=== PATIENT | male | born 1955 | race American Indian/Alaskan Native ===

== ENCOUNTER 2022-05-21 09:44 | Day surgery (SDC) | payer MEDICARE ==
[~2022-05-21 09:44] MED LIST: SODIUM CHLORIDE 0.9% 1000 ML 1,000 ML IV SCH
--- NOTE | 2022-05-21 10:53 | Anesthesia Day of Surgery ---
Anesthesia Day of Surgery - Day of Surgery Patient Examined: Yes Patient H&P Reviewed: Yes Patient is NPO: Yes
--- NOTE | 2022-05-21 10:56 | Anesthesia Consultation ---
Anesthesia Consult and Med Hx - Airway Anesthetic Teeth Evaluation: Edentulous ROM Head & Neck: Inadequate Mental/Hyoid Distance: Inadequate Mallampati Class: Class I Intubation Access Assessment: Possibly Difficult - Pulmonary Exam CTA: Yes - Cardiac Exam Cardiac Exam: RRR (h/o atrial fibrillation) - Pre-Operative Health Status ASA Pre-Surgery Classification: ASA3 Proposed Anesthetic Plan: MAC - Pulmonary Hx Smoking: No Hx Asthma: Yes COPD: No Hx Pneumonia: No Hx Sleep Apnea: No - Cardiovascular System Hx Hypertension: Yes Hx Coronary Artery Disease: No Hx Heart Attack/AMI: No Hx Angina: No - Central Nervous System Hx Back Pain: Yes Hx Psychiatric Problems: No - Gastrointestinal Hx Gastroesophageal Reflux Disease: Yes - Endocrine Hx Renal Disease: Yes (stage 2) Hx Liver Disease: No Hx Non-Insulin Dependent Diabetes: No Hx Thyroid Disease: Yes (inactive goiter, trachea midline) - Hematic Hx Anemia: Yes Hx Sickle Cell Disease: No - Other Systems Hx Substance Use: No (Chronic pain patient on opioids and soma) Hx Cancer: No - Additional Comments Anesthesia Medical History Comments: cervical Fusion 2008, limited ROM
[2022-05-21] MEDS ORDERED: propofoL 200 MG/20 ML VIAL IV ONE ×3 (12:05→12:31)
[2022-05-21] MEDS ORDERED: LIDOCAINE MPF (2%) 20 MG/1 ML VIAL 5 ML ONE (12:06)
[2022-05-21] MEDS ORDERED: MIDAZOLAM 2 MG/2 ML INJ ONE (12:16)
--- NOTE | 2022-05-21 12:54 | Operative Report ---
Operative Report Operative Report: Colonoscopy with submucosal injection and cold snare polypectomy DATE:05/21/2022 ATTENDING PHYSICIAN: Jian Davidson M.D. MANAGER FIXED INCOME: Jian Davidson M.D. INDICATIONS: Patient is a 67 y.o. male who presents for colorectal cancer screening . Patient has a past history of colon polyps. A colonoscopy is done to evaluate patient so that treatment may be directed based on the findings. CONSENT: Informed consent was obtained after the patient was advised regarding the nature of this procedure, its indications, potential benefits as well as possible complications including but not limited to bleeding, perforation, adverse reaction to medications, infection as well as cardiopulmonary complications. An informed written and verbal consent was then obtained after due opportunity was provided for questions and answers. MONITORING: Patient monitored continuously with pulse oximetry, electrocardiographic recordings as well as automatic blood pressure recordings. Patient remained stable throughout the procedure with no untoward events. PREOPERATIVE ASSESSMENT: Patient was assessed immediately prior to this procedure for capacity to tolerate moderate sedation/monitored anesthesia care. [place] [employer] classification is 2. Mallampati class is 2. Hyomental distance is 3. INSTRUMENT: Olympus video colonoscope [id number]. MEDICATIONS: Propofol given intravenously in divided doses. For details, please refer to anesthesia records. DESCRIPTION OF PROCEDURE: Patient was placed in the left lateral decubitus position, after achieving sedation, a digital rectal examination was performed following which the colonoscope was introduced into the anal verge and advanced under direct visualization to the cecum which was identified by the ileocecal valve, the appendiceal orifice, the cecal strap as well as by direct transillumination in the right lower quadrant. Color texture mucosa and anatomy of the colon were carefully examined with the colonoscope. The colonoscope was then gently withdrawn with careful inspection of all mucosa surfaces. The patient tolerated the procedure well with no complications. After completion of the examination, patient was transferred to the recovery room. The prep written regimen was GoLYTELY and the preparation was adequate. The following findings were noted. FINDINGS: Patient had moderate diverticulosis involving the sigmoid colon, descending colon and the ascending colon. In the transverse colon, patient had an 8 mm sessile polyp. This was elevated with submucosal injection of saline and removed by cold snare polypectomy using a captivator stiff snare. The polyp was then retrieved. No other gross mucosal abnormalities were observed. On the retroflexed view at the anal verge patient had internal hemorrhoids. IMPRESSION: Transverse colon polyp, status post submucosal injection and cold snare polypectomy. Colonic diverticulosis. Internal Hemorrhoids . PLAN: Follow pathology report. High fiber diet. Repeat colonoscopy in 5 years
[2022-05-21 13:11] VITALS: BP 125/63
--- NOTE | 2022-05-21 16:47 | Post Anesthesia Evaluation ---
- Post Anesthesia Evaluation Patient Participated: Yes Airway Patent: Yes Stable Respiratory Function: Yes Nausea/Vomiting: No Temp > 96.8F: Yes Pain Manageable: Yes Adequeate Hydration: Yes Anesthesia Complications: No Block Receding Appropriately: Not Applicable Patient on Ventilator: No
== END 2022-05-21 13:30 | disposition home or self-care (01) ==
LOC: GIO 09:44
PROVIDERS: ATTEND Internal Medicine Gastroenterology
DX: Z12.11 Encounter for screening for malignant neoplasm of colon (principal); K57.30 Diverticulosis of large intestine without perforation or abscess without bleeding; K64.8 Other hemorrhoids; D12.3 Benign neoplasm of transverse colon; E78.00 Pure hypercholesterolemia, unspecified; I10 Essential (primary) hypertension; J45.909 Unspecified asthma, uncomplicated; K21.9 Gastro-esophageal reflux disease without esophagitis; M19.90 Unspecified osteoarthritis, unspecified site; Z86.010 Personal history of colon polyps; D64.9 Anemia, unspecified; Z79.899 Other long term (current) drug therapy; Z98.41 Cataract extraction status, right eye; Z96.612 Presence of left artificial shoulder joint; Z98.890 Other specified postprocedural states
CPT/HCPCS: 45381; 45385; 88305; J2250; J2704; J7030